=== PATIENT | male | born 1980 | race Caucasian/White ===

== ENCOUNTER 2022-01-27 09:02 | Day surgery (SDC) | payer SELFPAY ==
[2022-01-24 11:34] VITALS: BMI 31.1
[2022-01-27 09:23] VITALS: BP 109/71; PULSE 80; RESP 18; TEMP 36.2; O2SAT 98
[2022-01-27] MEDS: sodium chloride 0.9% 1,000 ML 30 ML IV (09:30)
--- NOTE | 2022-01-27 10:13 | ANES.PREANE2 ---
Pre-Anesthetic Assessment Height/Weight: Height 1.57 m Weight 77.111 kg Temp Pulse Resp BP Pulse Ox O2 Del Method 97.2 F L 80 18 109/71 98 01/27/22 09:23 01/27/22 09:23 01/27/22 09:23 01/27/22 09:23 01/27/22 09:23 01/27/22 09:23 Operation Date: 01/27/22 10:45 Proposed Procedures p Colonoscopy 53141, K62.89(Not Applicable) - Kevin Mitchell DO Familial anesthetic complications: None Was Beta Anoop taken within 24 hours: N/A Was Clonidine taken within 24 hours: N/A Last intake: Intake Last Liquid Date 01/26/22 Last Liquid Time 22:00 Last Solid Date 01/25/22 Last Solid Time 17:00 Social Tobacco and No alcohol Exam alert, oriented x 3, clear to auscultation bilaterally and regular rate & rhythm Airway Mallampati: Class II Dentition: full Comments: Comments: full clayton Musc/skel hip replacement Anesthetic Plan ASA status: 2 Anesthesia: MAC Risk of > 500 ml blood loss (7ml/kg in children): No Medications/Allergies Home Medications Medication Instructions Recorded Confirmed Last Taken Type acetaminophen 500 mg tablet 500 mg PO Q6H PRN Pain 11/29/21 01/27/22 01/25/22 History (Tylenol Extra Strength) naproxen sodium 220 mg tablet 220 mg PO BID PRN Pain 11/29/21 01/27/22 Unknown History Allergies Allergy/AdvReac Type Severity Reaction Status Date / Time pineapple Allergy Severe ALGY-Anaphy Verified 01/27/22 09:22 laxis rofecoxib [From Vioxx] Allergy Severe ADR-Vomitin Verified 01/27/22 09:22 g Current Medications Generic Name Dose Route Start Last Admin Trade Name Freq PRN Reason Stop Dose Admin Sodium Chloride 1,000 mls @ 30 mls/hr 01/27/22 09:15 01/27/22 09:30 Sodium Chloride 0.9% IV 01/28/22 09:14 30 mls/hr .Q24H ILYA Administration PFSH Anesthesia Medical History Anal abscess History of diverticulitis 2009 Severe sun exposure Surgical History History of hip replacement left Hx of colonoscopy Hx of removal of cyst x4 done on rectum Social History Smoking and tobacco status: current every day smoker Data Anesthesia Cardiac Studies: No Data to Display
--- NOTE | 2022-01-27 10:55 | W.PM.OPSUD ---
Surgery/Procedure H&P Update DATE OF PROCEDURE: January 27, 2022 DATE H&P PERFORMED: 01/24/22 PLANNED PROCEDURE: Operation Date: 01/27/22 10:45 Proposed Procedures p Colonoscopy 70346, K62.89(Not Applicable) - Kevin Mitchell DO
[2022-01-27 11:53] VITALS: BP 103/65; PULSE 71; RESP 18; TEMP 36.1; O2SAT 96
[2022-01-27 11:58] VITALS: BP 110/73; PULSE 70; RESP 18; O2SAT 95
--- NOTE | 2022-01-27 13:26 | ANE.PACU2 ---
Inpatient post-anesthesia follow up: Airway intact: Yes Vital signs: Temperature 97.0 F Pulse Rate 70 Respiratory Rate 18 Blood Pressure 110/73 Pulse Oximetry 95 Oxygen Delivery Me thod Room Air Oxygen Flow Rate Fraction of Inspir ed Oxygen Hydration adequate: Yes Nausea and vomiting: No Pain level: 1 Mental status: Baseline
== END 2022-01-27 12:35 | disposition home or self-care (01) ==
PROVIDERS: Visit Provider Surgery
PROC: 0DJD8ZZ Inspection of Lower Intestinal Tract, Via Natural or Artificial Opening Endoscopic (ICD-10-PCS; CPT 45378; principal; 2022-01-27 10:45)
DX: D12.0 Benign neoplasm of cecum (principal); D12.2 Benign neoplasm of ascending colon; K62.1 Rectal polyp; F17.200 Nicotine dependence, unspecified, uncomplicated
CPT/HCPCS: 45380; 45385; 88305; J2704; J7030

== ENCOUNTER 2022-01-29 13:18 | Outpatient (CLI) | payer SELFPAY ==
--- NOTE | 2022-01-29 13:30 | CT_ITS ---
WS: [id number] CT ABDOMEN PELVIS TECHNIQUE: Contrast-enhanced CT of the abdomen and pelvis with coronal and sagittal reformatted image s. CLINICAL INFORMATION: abdominal pain COMPARISON: CT 2012 DLP: 1159.[address] scans at [facility] use at least one of these dose optimization techniques: automated e xposure control; mA and/or kV adjustment per patient size (includes targeted exams where dose is matc hed to clinical indication); or iterative reconstruction. FINDINGS: Diffuse fatty infiltration liver. Normal portal vein and splenic vein. Normal gallbladder. Normal spl een. Normal pancreatic parenchymal enhancement. Adrenal glands are normal. Normal renal parenchymal e nhancement. No hydronephrosis. Normal GE junction. Submucosal enhancement involving the stomach and d uodenum suspicious for gastroduodenitis. Lung bases are well aerated. Celiac and SMA are patent. Normal caliber abdominal aorta. Urine distended bladder. LEFT CANDELARIA degrades images in the pelvis. A few sigmoid diverticuli. No evidence of acute diverticulitis. No evidence of high-grade small or large bowel obstruction. Appendix is difficult to visualize but no evidence of a cute appendicitis. CT/CT abdomen pelvis w con* [id number] IMPRESSION: 1. Distal sigmoid and rectum are decompressed. A few sigmoid diverticuli. No e vidence of acute diverticulitis. 2. No evidence of high-grade small or large bowel obstruction. 3. Appendix is difficult to visualize but no evidence of acute appendicitis. 4. Diffuse fatty infiltration of the liver. 5. Diffuse enhancement of the gastric rugae and submucosal enhancement in the duodenum compatible with gastroduodenitis. 6. No other remarkable findings.
[2022-01-29] MEDS: iohexol 300 mg/mL 50 mL Btl PO (15:13)
[2022-01-29] MEDS: iohexol 350 mg/mL 100 mL Btl IV (15:13)
== END 2022-01-29 13:19 | disposition home or self-care (01) ==
LOC: RAD 13:20
PROVIDERS: Visit Provider Surgery
DX: R10.9 Unspecified abdominal pain (principal); K57.30 Diverticulosis of large intestine without perforation or abscess without bleeding; K76.0 Fatty (change of) liver, not elsewhere classified
CPT/HCPCS: 74177

== ENCOUNTER → 2022-04-06 14:34 | Outpatient (BNVA) | payer SELFPAY | PROVIDERS: Visit Provider Family Medicine | DX: J06.9 Acute upper respiratory infection, unspecified (principal); J10.1 Influenza due to other identified influenza virus with other respiratory manifestations | CPT/HCPCS: 87400 ==

== ENCOUNTER → 2023-04-10 08:23 | Outpatient (BNVA) | payer SELFPAY | PROVIDERS: Visit Provider Nurse Practitioner Family | DX: R05.9 Cough, unspecified (principal); J06.9 Acute upper respiratory infection, unspecified | CPT/HCPCS: 87400 ==

== ENCOUNTER 2023-06-07 12:03 | Emergency (ER) | payer SELFPAY ==
--- NOTE | 2023-06-07 12:06 | XRR_ITS ---
PROCEDURE INFORMATION: Exam: XR Left Hip Exam date and time: 06/07/2023 12:33 PM Age: 42 years old Clinical indication: Injury or trauma; Fall; Blunt trauma (contusions or hematomas); Left; Prior surgery; Surgery date: 6+ months; Surgery type: Lt hip TECHNIQUE: Imaging protocol: Radiologic exam of the left hip. Views: 2 or 3 views hip with pelvis when performed. COMPARISON: CT abdomen pelvis w con* [id number] 01/29/2022 3:08 PM FINDINGS: Bones/joints: A left total hip arthroplasty projects in satisfactory position. No fracture, dislocation, or prosthetic loosening. Otherwise, unremarkable. Soft tissues: Unremarkable. XR/XR hip LT 2-3V wo/w pel* [id number] IMPRESSION: No acute findings.
[2023-06-07 12:15] VITALS: BP 107/68; PULSE 82; RESP 16; TEMP 36.9; O2SAT 97; BMI 32.9
--- NOTE | 2023-06-07 12:32 | ED_ITS ---
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 States that today an hour ago and felt a pop in his left hip and fell the ground has been having left hip pain since then along with difficulty trying to bear weight on that left leg. He denies any knee pain denies hitting his head he rates his pain a 6 out of 10. Associated symptoms: Deny chest pain, fever(s) or rash Review of Systems Const: Denies: fever(s), chills, body aches or change in appetite ENMT: Denies: throat pain or dental pain Card: Denies: chest pain Resp: Denies: dyspnea GI: Denies: abdominal pain, nausea, vomiting or diarrhea Musc: Reports: extremity pain; Denies: neck pain or back pain Skin/Breast: Denies: rash Neuro: Denies: headache(s) PFSH ED PFSH: Medical History History of diverticulitis 2010 Anal abscess Severe sun exposure Surgical History History of hip replacement left Hx of colonoscopy Hx of removal of cyst x4 done on rectum Social History Smoking and tobacco/nicotine status: current every day tobacco/nicotine user Physical Exam Const: COMMON NORMALS: no acute distress, patient oriented x3 and healthy sydnee earing HENMT: COMMON NORMALS: normocephalic and atraumatic HEAD & SCALP: normocephalic and atraumatic Eye: COMMON NORMALS: Equal, round and reactive pupils present and EOMs intact bilaterally PUPIL: Yes Equal, round and reactive pupils present Neck/C-Spine: COMMON NORMALS: full ROM and supple Chest: COMMONS NORMALS: normal inspection of the chest Resp: COMMON NORMALS: normal respiratory effort Cardio: COMMON NORMALS: regular rate RATE: regular rate Extremity: COMMON NORMALS: full ROM NARRATIVE EXTREMITY EXAM: Tenderness over left hip has pain with range of motion. Distal pulses intact Neuro: COMMON NORMALS: patient oriented x3, moves all extremities and no focal motor deficits Psych: COMMON NORMALS: mental status grossly normal, Normal thought process present and cooperative THOUGHT PROCESS: Normal thought process present Skin: COMMON NORMALS: no rashes or lesions noted and no wounds GENERAL SKIN EXAM: no rashes or lesions noted Course Vital Signs: Vital signs: Vital Signs Temperature 98.4 F 06/07/23 12:15 Pulse Rate 82 06/07/23 12:15 Respiratory Rate 16 06/07/23 12:15 Blood Pressure 107/68 06/07/23 12:15 Pulse Oximetry 97 06/07/23 12:15 Oxygen Delivery Me thod Room Air 06/07/23 12:15 MDM - Extremity (Nontraumatic) Medical Decision Making Patient presents here with left hip pain likely muscle spasms x-ray shows no abnormalities he is stable for discharge we will place him on pain meds along with muscle relaxants he is follow-up with his PCP and return if worsening. Medical Records I reviewed the patient's medical records. Lab Data Radiology Impressions Hip/Pelvis X-Ray 06/07/23 12:06 IMPRESSION: No acute findings. All radiology interpretation(s) finalized by discharge Discharge Plan Discharge Patient Disposition: Home Clinical Impression: Hip pain, left Condition: Stable Prescriptions: New hydrocodone-acetaminophen 5-325 mg tablet 1 tab PO Q6H PRN (Reason: pain) Qty: 14 0RF methocarbamol 750 mg tablet 750 mg PO Q6H PRN (Reason: spasms) Qty: 20 0RF No Action acetaminophen [Tylenol Extra Strength] 500 mg tablet 500 mg PO Q6H PRN (Reason: Pain) duloxetine 30 mg capsule,delayed release(DR/EC) 30 mg PO gabapentin 100 mg capsule 100 mg PO TID Discharge Orders: Discharge ED (Routine); Ordered 06/07/23 Ordered By: Carlota Galindo Discharge Diet: Advance as tolerated Discharge Activity: Resume usual activity Patient Instructions: Hip Pain (ED), Opioid Safety Stand Alone Forms: Work/School Release Coding Level of Care Code ED Director Of Search Engine Optimization for Sohail Alonzo
[2023-06-07] MEDS: morphine 4 mg/mL SDV 1 mL IM (12:42)
== END 2023-06-07 13:02 | disposition home or self-care (01) ==
PROVIDERS: Emergency Provider Emergency Medicine
DX: M25.552 Pain in left hip (principal); Z72.0 Tobacco use
CPT/HCPCS: 73502; 96372; 99284; J2270

== ENCOUNTER 2023-12-06 19:41 | Emergency (ER) | payer SELFPAY ==
[2023-12-06 19:49] VITALS: BP 114/77; PULSE 87; RESP 16; TEMP 36.8; O2SAT 96; BMI 25.2
--- NOTE | 2023-12-06 21:20 | CTR_ITS ---
PROCEDURE INFORMATION: Exam: CT Abdomen And Pelvis With Contrast Exam date and time: 12/06/2023 9:47 PM Age: 43 years old Clinical indication: Other: Abnormal bowel movement. Prior surgery; Surgery date: 6+ months; Surgery type: Left gurpreet; Patient HX: Patient believes he defecated a piece of internal tissue earlier this evening. Brought sample into er. History of diveritculitis and rectal abscess with multiple polyps. ; Additional info: Concern for mass TECHNIQUE: Imaging protocol: Computed tomography of the abdomen and pelvis with contrast. Radiation optimization: All CT scans at this facility use at least one of these dose optimization techniques: automated exposure control; mA and/or kV adjustment per patient size (includes targeted exams where dose is matched to clinical indication); or iterative reconstruction. Contrast material: OMNI 350; Contrast volume: 100 ml; Contrast route: INTRAVENOUS (IV); COMPARISON: CT abdomen pelvis w con* [id number] 01/29/2022 3:08 PM RADIATION DOSE METRICS: Total DLP (mGy-cm): 648.31 FINDINGS: Lungs: Subsegmental bibasilar atelectasis. The visualized lung bases are otherwise grossly clear. Diaphragm: No evidence of diaphragmatic defect. Liver: No focal hepatic lesion. Gallbladder and biliary ducts: Unremarkable. No intra-hepatic or extra-hepatic biliary dilatation. Pancreas: Unremarkable. Spleen: Unremarkable. Adrenal glands: Unremarkable. Kidneys and ureters: No renal parenchymal abnormality. No hydronephrosis or ureteral stone. Stomach and bowel: No evidence of bowel obstruction or perienteric inflammatory changes. No evidence of anorectal mass. Appendix: The appendix is not visualized, however there are no findings to suggest appendicitis. Intraperitoneal space: No evidence of free air or fluid collection. Vasculature: No aneurysmal dilatation or dissection of the abdominal aorta. The celiac trunk, SMA and MICHAEL are grossly patent. No evidence of IVC thrombus. The portal vein, SMV and splenic veins are grossly patent. Lymph nodes: No adenopathy. Urinary bladder: Grossly unremarkable. Reproductive: Grossly unremarkable. Bones/joints: No evidence of acute fracture or aggressive osseous lesion. Total left hip arthroplasty. Soft tissues: No evidence of fluid collection or hematoma in the superficial soft tissues. CT/CT abdomen pelvis w con* [id number] IMPRESSION: 1. No evidence of acute abnormality in the abdomen or pelvis.
--- NOTE | 2023-12-06 21:27 | W.ED.ABDPA2 ---
HPI - Abdominal Pain General: Chief Complaint: Abdominal Pain Stated Complaint: Is Constipated\Mass Came Out Time Seen by Provider: 12/06/23 19:46 History of Present Illness: 43-year-old male patient comes in for concerns of a what he believes is a piece of tissue that he defecated. Patient had a colonoscopy 2 years ago and was told that he has polyps. Patient feels that he might of passed a polyp. Patient has a 2 cm circular mass surrounding the mucus that he brought in in a cup. Patient appears nontoxic. Patient does smoke tobacco routinely. 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 Review of Systems General: Reports: 10 or more systems reviewed and unremarkable except in HPI and below PFSH ED PFSH: Medical History History of diverticulitis 2010 Anal abscess Severe sun exposure Surgical History History of hip replacement left Hx of colonoscopy Hx of removal of cyst x4 done on rectum Social History Smoking and tobacco/nicotine status: current every day tobacco/nicotine user Physical Exam Const: COMMON NORMALS: alert HENMT: HEAD & SCALP: normal to inspection Neck/C-Spine: COMMON NORMALS: full ROM Resp: COMMON NORMALS: normal respiratory effort and clear to auscultation bilaterally AUSCULTATION: clear to auscultation bilaterally Cardio: COMMON NORMALS: regular rate and regular rhythm RATE: regular rate RHYTHM: regular rhythm GI: COMMON NORMALS: Soft to palpation and non-tender PALPATION: Yes Soft to palpation : COMMON NORMALS: Yes no CVA tenderness BLADDER/KIDNEY EXAM: Yes no CVA tenderness Back/Pelvis: COMMON NORMALS: no CVA tenderness Extremity: COMMON NORMALS: normal to inspection Neuro: SENSORIUM/ORIENTATION: Yes alert Skin: COMMON NORMALS: turgor normal GENERAL SKIN EXAM: turgor normal Course Vital Signs: Vital signs: Vital Signs Temperature 98.2 F 12/06/23 19:49 Pulse Rate 78 12/06/23 22:09 Respiratory Rate 18 12/06/23 22:09 Blood Pressure 110/75 12/06/23 22:09 Pulse Oximetry 93 12/06/23 22:09 Oxygen Delivery Me thod Room Air 12/06/23 22:09 MDM - Abdominal Pain Medical Decision Making Patient comes in today for complaints of constipation and passing of a piece of tissue in his stool. Patient believes that it might be a polyp. Patient appears nontoxic. Abdomen soft with some mild tenderness. Bowel sounds are present. Differential diagnosis carcinoma, constipation, colon polyp, hemorrhoid. Abnormal stool was sent for tissue analysis. I believe like patient actually brought in was a piece of stool but he was concerned there was tissue in it. Pathology will decide. CBC was unremarkable. CMP was unremarkable. Urinalysis did note some nitrates which may be suggestive of urinary tract infection. Patient has also had some constipation which may further endorse the UTI. Will go ahead and treat with ceftriaxone in the emergency room and continue with cephalexin at home. CT of the abdomen pelvis was unremarkable. My review of the CT noted no significant constipation. Patient was given 1 L of IV fluids to help correct dehydration secondary to laxative use. Lab Data 12/06/23 21:39 12/06/23 21:39 Labs/Radiology: Radiology Impressions Abdomen/Pelvis CT 12/06/23 21:20 IMPRESSION: 1. No evidence of acute abnormality in the abdomen or pelvis. Laboratory Results WBC 9.68 10^3/uL (3.29-11.43) 12/06/23 21:39 RBC 5.33 10^6/uL (3.85-5.65) 12/06/23 21:39 Hgb 16.40 g/dL (11.27-16.99) 12/06/23 21:39 Hct 47.3 % (37-53) 12/06/23 21:39 MCV 88.7 fl (82-101) 12/06/23 21:39 MCH 30.8 pg (27-33) 12/06/23 21:39 MCHC 34.7 g/dL (30-55) 12/06/23 21:39 RDW 12.4 % (12.1-15.1) 12/06/23 21:39 Plt Count 229 10^3/cmm (157-399) 12/06/23 21:39 MPV 9.1 fL (7.4-10.4) 12/06/23 21:39 Neut % (Auto) 47.3 % 12/06/23 21:39 Lymph % (Auto) 39.4 % 12/06/23 21:39 [place] % (Auto) 9.1 % 12/06/23 21:39 Eos % (Auto) 3.0 % 12/06/23 21:39 Baso % (Auto) 0.6 % 12/06/23 21:39 Neut # (Auto) 4.58 10^3/uL (1.8-7.7) 12/06/23 21:39 Lymph # (Auto) 3.8 10^3/uL (0.8-4.8) 12/06/23 21:39 [place] # (Auto) 0.9 10^3/uL (0.2-0.9) 12/06/23 21:39 Eos # (Auto) 0.3 10^3/uL (0.0-0.8) 12/06/23 21:39 Baso # (Auto) 0.1 10^3/uL (0.0-0.1) 12/06/23 21:39 Nucleated RBC % (auto) 0 % 12/06/23 21:39 Nucleated RBCs # 0.0 /100WBC 12/06/23 21:39 Sodium 134 mmol/L (136-145) L 12/06/23 21:39 Potassium 3.7 mmol/L (3.5-5.1) 12/06/23 21:39 Chloride 100 mmol/L (98-107) 12/06/23 21:39 Carbon Dioxide 23 mmol/L (22-29) 12/06/23 21:39 Anion Gap 14.7 (5-19) 12/06/23 21:39 BUN 17 mg/dL (6-20) 12/06/23 21:39 Creatinine 0.9 mg/dL (0.7-1.2) 12/06/23 21:39 GFR Calculation 92.5 mL/min (90-130) 12/06/23 21:39 Glucose 107 mg/dL (65-115) 12/06/23 21:39 Calculated Osmolality 280 mOsm/kg (285-295) L 12/06/23 21:39 Calcium 9.0 mg/dL (8.5-10.5) 12/06/23 21:39 Total Bilirubin 0.4 mg/dL (0.15-1.2) 12/06/23 21:39 AST 22 U/L (0-40) 12/06/23 21:39 ALT 40 U/L (0-41) 12/06/23 21:39 Alkaline Phosphatase 80 U/L (40-130) 12/06/23 21:39 Total Protein 7.5 g/dL (6.6-8.7) 12/06/23 21:39 Albumin 4.2 g/dL (3.5-5.2) 12/06/23 21:39 Globulin 3.3 g/dL (1.3-4.6) 12/06/23 21:39 Lipase 50 U/L (13-60) 12/06/23 21:39 Urine Color Yellow (Yellow) 12/06/23 22:00 Urine Appearance Slightly cloudy (CLEAR) 12/06/23 22:00 Urine pH 5 (5-7) 12/06/23 22:00 Ur Specific [place] 1.020 (1.005-1.030) 12/06/23 22:00 Urine Protein Trace (Negative) 12/06/23 22:00 Urine Glucose (UA) Norm (Normal) 12/06/23 22:00 Urine Ketones 1+ (Negative) H 12/06/23 22:00 Urine Blood 2+ (Negative) H 12/06/23 22:00 Urine Nitrate Positive (Negative) A 12/06/23 22:00 Urine Bilirubin Neg (Negative) 12/06/23 22:00 Urine Urobilinogen Neg mg/dL (Negative) 12/06/23 22:00 Ur Leukocyte Esterase Negative (Negative) 12/06/23 22:00 Urine RBC 0-4 /hpf (0-2) H 12/06/23 22:00 Urine WBC 0-4 /hpf (0-5) H 12/06/23 22:00 Ur Squamous Epith Cells 0-4 /hpf (0-5) H 12/06/23 22:00 Amorphous Sediment Not Reportable 12/06/23 22:00 Urine Bacteria 2+ /hpf (NONE) H 12/06/23 22:00 Urine Mucus 2+ /hpf 12/06/23 22:00 All radiology interpretation(s) finalized by discharge Discharge Plan Discharge Patient Disposition: Home Clinical Impression: Stool contents finding, abnormal, Bacterial UTI Condition: Stable Prescriptions: New cephalexin 500 mg capsule 500 mg PO TID 7 Days Qty: 21 0RF No Action acetaminophen [Tylenol Extra Strength] 500 mg tablet 500 mg PO Q6H PRN (Reason: Pain) duloxetine 30 mg capsule,delayed release(DR/EC) 30 mg PO gabapentin 100 mg capsule 100 mg PO TID hydrocodone-acetaminophen 5-325 mg tablet 1 tab PO Q6H PRN (Reason: pain) Qty: 14 0RF methocarbamol 750 mg tablet 750 mg PO Q6H PRN (Reason: spasms) Qty: 20 0RF Discharge Orders: Discharge ED (Routine); Ordered 12/06/23 Ordered By: Lenin Pedroza Referrals: Lizabeth Johnson DO [Primary Care Provider] - Discharge Diet: Usual diet Discharge Activity: Increase activity as tolerated Patient Instructions: Urinary Tract Infection in Men (ED) Activity Restrictions/Additional Instructions: Drink plenty of water and fluids. Follow-up with Dr. Mitchell for further evaluation and concerns about probable polyp passing. Take antibiotics as directed for urinary tract infection. Eat a healthy diet with plenty of fiber. Follow-up with primary care as needed. Return to ED for new concerns or worsening symptoms such as high fever, blood in stool, or inability to hold fluids down. Coding Level of Care Code ED Metal Sp[employer] Making Machine Operator for Sohail Alonzo
[2023-12-06 21:40] VITALS: BP 110/79; PULSE 77; RESP 16; O2SAT 98
[2023-12-06 21:48] LABS: Basophils # 0.1 10^3/uL (0.0-0.1); Basophils % 0.6 %; Eosinophils # 0.3 10^3/uL (0.0-0.8); Hematocrit 47.3 % (37-53); Lymphocytes # 3.8 10^3/uL (0.8-4.8); Lymphocytes % 39.4 %; Mean Corpuscular HGB Conc 34.7 g/dL (30-55); Mean Corpuscular Hemoglobin 30.8 pg (27-33); Mean Corpuscular Volume 88.7 fl (82-101); Mean Platelet Volume 9.1 fL (7.4-10.4); Monocytes # 0.9 10^3/uL (0.2-0.9); Monocytes % 9.1 %; Neutrophils # 4.58 10^3/uL (1.8-7.7); Neutrophils % 47.3 %; Nucleated Red Blood Cells % 0 %; Platelet Count 229 10^3/cmm (157-399); Red Blood Count 5.33 10^6/uL (3.85-5.65); Red Cell Distribution Width 12.4 % (12.1-15.1); White Blood Count 9.68 10^3/uL (3.29-11.43)
[2023-12-06] MEDS: iohexol 350 mg/mL 500 mL Btl (per mL) IV (21:49)
[2023-12-06 22:08] LABS: Alanine Aminotransferase 40 U/L (0-41); Albumin Level 4.2 g/dL (3.5-5.2); Alkaline Phosphatase 80 U/L (40-130); Anion Gap 14.7 (5-19); Aspartate Amino Transferase 22 U/L (0-40); Blood Urea Nitrogen 17 mg/dL (6-20); Carbon Dioxide 23 mmol/L (22-29); Chloride 100 mmol/L (98-107); Creatinine Clr Calc Pharmacy 87.4112; Globulin 3.3 g/dL (1.3-4.6); Glomerular Filtration Rate 92.5 mL/min (90-130); Glucose 107 mg/dL (65-115); Lipase 50 U/L (13-60); Osmolality Calculated 280 mOsm/kg (285-295); Potassium 3.7 mmol/L (3.5-5.1); Sodium 134 mmol/L (136-145); Total Bilirubin 0.4 mg/dL (0.15-1.2); Total Protein 7.5 g/dL (6.6-8.7)
[2023-12-06 22:09] VITALS: BP 110/75; PULSE 78; RESP 18; O2SAT 93
[2023-12-06 22:39] LABS: Add Urine Microscopic? YES; Bilirubin Urine Neg (Negative); Blood Urine 2+ (Negative); Glucose Urine UA Norm (Normal); Ketones Urine 1+ (Negative); Leukocyte Esterase Urine Negative (Negative); Nitrate Urine Positive (Negative); Protein Urine Trace (Negative); Urine Appearance Slightly Cloudy (CLEAR); Urine Color Yellow (Yellow); Urobilinogen Urine Neg (Negative); pH Urine 5 (5-7)
[2023-12-06 22:40] LABS: Bacteria Urine 2+ /hpf; Mucus Urine 2+ /hpf; RBC Urine 0-4 /hpf (0-2); Squamous Epithelial Cell Urine 0-4 /hpf (0-5); WBC Urine 0-4 /hpf (0-5)
[2023-12-06 22:41] LABS: Add Urine Culture? Yes
[2023-12-06 23:23] VITALS: BP 102/64; PULSE 70; RESP 16; O2SAT 96
[2023-12-06] MEDS: sodium chloride 0.9% 1,000 ML 999 ML IV (23:27)
[2023-12-06] MEDS: cefTRIAXone 1,000 mg SDV 1000 MG IVP (23:27)
[2023-12-07 00:12] VITALS: BP 103/55; PULSE 71; RESP 18; O2SAT 94
[2023-12-07 00:14] VITALS: BP 103/55; PULSE 71; RESP 18; TEMP 36.8; O2SAT 94
--- NOTE | 2023-12-07 08:23 | DCPLANNER ---
Message sent to Gen surg for follow up
== END 2023-12-07 00:17 | disposition home or self-care (01) ==
PROVIDERS: Emergency Provider Nurse Practitioner Family; PCP Family Medicine
DX: R19.5 Other fecal abnormalities (principal); N39.0 Urinary tract infection, site not specified; B96.89 Other specified bacterial agents as the cause of diseases classified elsewhere; Z72.0 Tobacco use
CPT/HCPCS: 74177; 80053; 81001; 83690; 85025; 87086; 88305; 96374; 99285; J0696; J7030; Q9967

== ENCOUNTER 2024-01-27 07:46 | Outpatient (CLI) | payer SELFPAY ==
--- NOTE | 2024-01-27 08:00 | NM_ITS ---
WS: [id number] NUCLEAR MEDICINE HIDA SCAN WITH GALLBLADDER EJECTION FRACTION HISTORY: gastroduodenitis COMPARISON: CT 12/06/2023 TECHNIQUE: The patient was intravenously injected with 7.9 mCi of TC99m Mebrofenin. Immediate imaging over the right upper quadrant was followed by 5 minute image and additional images for a total of 60 minutes. Normal uptake of radiotracer throughout the liver. Activity identified in the gallbladder at 10 minutes and well distended by 60 minutes. Activity in the proximal small bowel was seen by 40 minutes. Good washout of the radiotracer from the liver by 60 minutes. The patient then drank 8 ounces of Ensure Plus. Ejection fraction at 60 minutes was 54%. Normal GB ej ection fraction is 35-75%. Post fatty meal symptoms: None. NM/NM hepatobiliary w phar* [id number] IMPRESSION: 1. Normal HIDA scan. 2. Normal gallbladder ejection fraction.
== END 2024-01-27 07:47 | disposition home or self-care (01) ==
LOC: RAD 07:47
PROVIDERS: PCP Family Medicine; Visit Provider Surgery
DX: K29.90 Gastroduodenitis, unspecified, without bleeding (principal)
CPT/HCPCS: 78227; A9537

== ENCOUNTER 2024-02-12 07:35 | Outpatient (CLI) | payer SELFPAY ==
--- NOTE | 2024-02-12 08:00 | US_ITS ---
WS: [id number] RIGHT UPPER QUADRANT ULTRASOUND HISTORY: gastroduodentitis COMPARISON: CT 12/06/2023 Liver: 14.1 cm in length. Normal size liver. Coarse echotexture is related to poor settings. There is a hypoechoic area measuring 1.6 x 1.3 x 2.0 cm in the central liver. Too small to characterize. Coul d potentially be a small cyst. Portal Vein: Normal hepatopetal flow with monophasic waveform. Gallbladder: Normally distended gallbladder with no stones or wall thickening. CBD: 0.4 cm Pancreas: Not visualized. Right kidney: 11.2 cm in length. Normal size and echogenicity. No hydronephrosis or mass. Aorta and IVC: Unremarkable abdominal aorta and IVC. No ascites. US/US gall bladder [id number] IMPRESSION: 1. Negative gallbladder. 2. Too small to characterize hypoechoic area in the central liver. May be a sm all cyst or complex cyst. Very nonspecific in appearance. With no history of ma lignancy statistically this is not likely metastatic disease. 3. Nonvisualization of the pancreas.
== END 2024-02-12 07:36 | disposition home or self-care (01) ==
PROVIDERS: PCP Family Medicine; Visit Provider Surgery
DX: K29.90 Gastroduodenitis, unspecified, without bleeding (principal)
CPT/HCPCS: 76705

== ENCOUNTER 2024-02-24 07:19 | Day surgery (SDC) | payer SELFPAY ==
[2024-02-24 07:32] VITALS: BP 107/60; PULSE 57; RESP 18; TEMP 36.4; O2SAT 98
[2024-02-24] MEDS: sodium chloride 0.9% 1,000 ML 30 ML IV (07:43)
--- NOTE | 2024-02-24 08:04 | ANES.PREANE2 ---
Pre-Anesthetic Assessment Height/Weight: Height 1.57 m Weight 72.575 kg Temp Pulse Resp BP Pulse Ox O2 Del Method 97.6 F 57 L 18 107/60 98 Room Air 02/24/24 07:32 02/24/24 07:32 02/24/24 07:32 02/24/24 07:32 02/24/24 07:32 02/24/24 07:32 Preop Diagnosis: History of colonic polyps, Abdominal Pain, GERD Operation Date: 02/24/24 08:30 Proposed Procedures p EGD 15057, 64219, G0105, Z86.010, K21.9, K59.04, R10.9(Not Applicable) - DO elma Clark Colonoscopy(Not Applicable) - Kevin Mitchell DO Familial anesthetic complications: none Was Beta Anoop taken within 24 hours: N/A Was Clonidine taken within 24 hours: N/A Last intake: Intake Last Liquid Date 02/23/24 Last Liquid Time 23:30 Last Solid Date 02/22/24 Last Solid Time 19:00 Social Alcohol (1x week, social per patient) and Tobacco Exam alert, oriented x 3, clear to auscultation bilaterally and regular rate & rhythm Airway Submandibular: within normal limits Cervical ROM: within normal limits Mallampati: Class II Dentition: chipped Comments: Comments: poor dentition left lower molar loose. Pulmonary None reported CV/HEM None reported None reported Hepatic mass on liver found a few weeks prior complete workup not yet performed possible cyst per patient. 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 Neuropsych Depression Anesthetic Plan ASA status: 2 Anesthesia: MAC Medications/Allergies Home Medications Medication Instructions Recorded Confirmed Last Taken Type acetaminophen 500 mg tablet 1,000 mg PO Q6H PRN Pain 11/29/21 02/22/24 02/23/24 History (Tylenol Extra Strength) hydrocodone 5 mg-acetaminophen 325 1 tab PO Q6H PRN pain #14 tabs 06/07/23 02/22/24 02/23/24 Rx mg tablet methocarbamol 750 mg tablet 750 mg PO Q6H PRN spasms #20 tabs 06/07/23 02/22/24 02/23/24 Rx pantoprazole 40 mg tablet,delayed 40 mg PO BID 6 weeks #84 tabs 01/18/24 02/22/24 02/23/24 Rx release (Protonix) linaclotide 145 mcg capsule 145 mcg PO DAILY 02/22/24 02/22/24 02/23/24 History (Linzess) naproxen 250 mg tablet 250 mg PO BID PRN Pain 02/22/24 02/22/24 02/23/24 History Allergies Allergy/AdvReac Type Severity Reaction Status Date / Time pineapple Allergy Severe ALGY-Anaphy Verified 01/18/24 10:47 laxis rofecoxib [From Vioxx] Allergy Severe ADR-Vomitin Verified 01/18/24 10:47 g Current Medications Generic Name Dose Route Start Last Admin Trade Name Freq PRN Reason Stop Dose Admin Sodium Chloride 1,000 mls @ 30 mls/hr 02/24/24 07:30 02/24/24 07:43 Sodium Chloride 0.9% IV 02/25/24 07:29 30 mls/hr .Q24H ILYA Administration PFSH Anesthesia Medical History (Updated 01/18/24 @ 11:31 by Kevin Mitchell DO) History of colon polyps History of diverticulitis 2010 Anal abscess Severe sun exposure Surgical History History of hip replacement left Hx of colonoscopy Hx of removal of cyst x4 done on rectum Family History Family/Other , from stage 4 cancer at the age of 48 Colon cancer Social History Smoking and tobacco/nicotine status: current every day tobacco/nicotine user (half a pack to a full pack a day) Data Anesthesia Cardiac Studies: No Data to Display
--- NOTE | 2024-02-24 08:25 | PM.HP ---
Providers/Chief Complaint Primary Care Provider: Lizabeth Johnson DO Chief Complaint: Z86.010 History of Present Illness Paul Ryees is a 43 year old male Review of Systems General: Reports: 10 or more systems reviewed and unremarkable except in HPI and below Medications/Allergies Home Medications Medication Instructions Recorded Confirmed Last Taken Type acetaminophen 500 mg tablet 1,000 mg PO Q6H PRN Pain 11/29/21 02/22/24 02/23/24 History (Tylenol Extra Strength) hydrocodone 5 mg-acetaminophen 325 1 tab PO Q6H PRN pain #14 tabs 06/07/23 02/22/24 02/23/24 Rx mg tablet methocarbamol 750 mg tablet 750 mg PO Q6H PRN spasms #20 tabs 06/07/23 02/22/24 02/23/24 Rx pantoprazole 40 mg tablet,delayed 40 mg PO BID 6 weeks #84 tabs 01/18/24 02/22/24 02/23/24 Rx release (Protonix) linaclotide 145 mcg capsule 145 mcg PO DAILY 02/22/24 02/22/24 02/23/24 History (Linzess) naproxen 250 mg tablet 250 mg PO BID PRN Pain 02/22/24 02/22/24 02/23/24 History Allergies Allergy/AdvReac Type Severity Reaction Status Date / Time pineapple Allergy Severe ALGY-Anaphy Verified 01/18/24 10:47 laxis rofecoxib [From Vioxx] Allergy Severe ADR-Vomitin Verified 01/18/24 10:47 g PFSH Acute PFSH: Medical History History of colon polyps History of diverticulitis 2010 Anal abscess Severe sun exposure Surgical History History of hip replacement left Hx of colonoscopy Hx of removal of cyst x4 done on rectum Family History Family/Other , from stage 4 cancer at the age of 48 Colon cancer Social History Smoking and tobacco/nicotine status: current every day tobacco/nicotine user (half a pack to a full pack a day) Vitals/I&O/Wt Last Vital Signs Temp 97.6 F 02/24/24 07:32 Pulse 57 L 02/24/24 07:32 Resp 18 02/24/24 07:32 BP 107/60 02/24/24 07:32 Pulse Ox 98 02/24/24 07:32 O2 Del Method Room Air 02/24/24 07:32 Weight last 48 hrs Weight 160 lb A&P Assessment and plan (1) History of colon polyps: (2) GERD (gastroesophageal reflux disease): (3) Chronic idiopathic constipation: (4) Abdominal pain: Plan EGD and colonoscopy Attestations Medical Necessity Statement*: Home Coding Level of Care Code Acute Code for Chg Fwd Diagnoses History of colon polyps Z86.010 GERD (gastroesophageal reflux disease) K21.9 Chronic idiopathic constipation K59.04 Abdominal pain R10.9
[2024-02-24 08:58] VITALS: BP 96/60; PULSE 85; RESP 18; TEMP 36.2; O2SAT 97
[2024-02-24 09:15] VITALS: BP 93/62; PULSE 77; RESP 18; O2SAT 98
[2024-02-24 09:20] VITALS: BP 98/63; PULSE 89; RESP 18; O2SAT 97
--- NOTE | 2024-02-24 09:30 | ANE.PACU2 ---
Inpatient post-anesthesia follow up: Airway intact: Yes Vital signs: Temperature 97.1 F Pulse Rate 89 Respiratory Rate 18 Blood Pressure 98/63 Pulse Oximetry 97 Oxygen Delivery Me thod Room Air Oxygen Flow Rate 5 Fraction of Inspir ed Oxygen Hydration adequate: Yes Pain level: 1 Mental status: Baseline
--- NOTE | 2024-02-24 13:27 | PC.NURSE ---
hot snare open but not needed and not used, cold snare opened and used.
== END 2024-02-24 09:30 | disposition home or self-care (01) ==
PROVIDERS: PCP Family Medicine; Visit Provider Surgery
PROC: 0DJ08ZZ Inspection of Upper Intestinal Tract, Via Natural or Artificial Opening Endoscopic (ICD-10-PCS; CPT 43235; principal; 2024-02-24 08:30)
PROC: 0DJD8ZZ Inspection of Lower Intestinal Tract, Via Natural or Artificial Opening Endoscopic (ICD-10-PCS; CPT 45378; 2024-02-24 08:30)
DX: K59.04 Chronic idiopathic constipation (principal); Z86.010 Personal history of colon polyps; K21.9 Gastro-esophageal reflux disease without esophagitis; R10.9 Unspecified abdominal pain; F17.210 Nicotine dependence, cigarettes, uncomplicated
CPT/HCPCS: 43239; 45385; 88305; J2704; J3490; J7030

== ENCOUNTER 2024-03-22 07:44 | Day surgery (SDC) | payer SELFPAY ==
[2024-03-22] VITALS (10 sets, daily range): BP systolic 101–143; BP diastolic 67–91; PULSE 58–81; RESP 16–27; TEMP 36.2–37.1; O2SAT 90–96; BMI 31.1
--- NOTE | 2024-03-22 08:09 | W.PM.OPSUD ---
Surgery/Procedure H&P Update DATE OF PROCEDURE: March 22, 2024 DATE H&P PERFORMED: 03/10/24 H&P UPDATE INFORMATION: I have reviewed H&P completed within last 30 days, I have examined patient prior to procedure and No changes to prior documentation PLANNED PROCEDURE: Operation Date: 03/22/24 09:20 Proposed Procedures p Laparoscopic Cholecystectomy 31048, K80.50(Not Applicable) - Kevin Mitchell, DO
--- NOTE | 2024-03-22 08:29 | P.ANESASSM_ITS ---
Pre-Anesthetic Assessment Height/Weight: Height 1.57 m Weight 77.111 kg O2 Del Method Room Air 03/22/24 08:15 Operation Date: 03/22/24 09:20 Proposed Procedures p Laparoscopic Cholecystectomy 79778, K80.50(Not Applicable) - Kevin Mitchell DO Familial anesthetic complications: None Was Beta Anoop taken within 24 hours: N/A Was Clonidine taken within 24 hours: N/A Last intake: Intake Last Liquid Date 03/21/24 Last Liquid Time 20:00 Last Solid Date 03/21/24 Last Solid Time 17:00 Social Tobacco and No alcohol Exam alert, oriented x 3, clear to auscultation bilaterally and regular rate & rhythm Airway Mallampati: Class IV Dentition: chipped and loose GI Gastroesophageal Reflux Disease Anesthetic Plan ASA status: 2 Anesthesia: General Risk of > 500 ml blood loss (7ml/kg in children): No Medications/Allergies Home Medications Medication Instructions Recorded Confirmed Last Taken Type acetaminophen 500 mg tablet 1,000 mg PO Q6H PRN Pain 11/29/21 03/21/24 03/07/24 History (Tylenol Extra Strength) hydrocodone 5 mg-acetaminophen 325 1 tab PO Q6H PRN pain #14 tabs 06/07/23 03/21/24 03/01/24 Rx mg tablet pantoprazole 40 mg tablet,delayed 40 mg PO BID 6 weeks #84 tabs 01/18/24 03/21/24 03/21/24 Rx release (Protonix) naproxen 250 mg tablet 250 mg PO BID PRN Pain 02/22/24 03/21/24 02/23/24 History linaclotide 290 mcg capsule 290 mcg PO QAM #30 caps 02/24/24 03/21/24 03/21/24 Rx (Linzess) ciprofloxacin HCl 0.3 % eye drops See Rx Instructions ophthalmic 03/16/24 03/21/24 03/21/24 Rx (eye) .COMPLEX #2.5 mL Allergies Allergy/AdvReac Type Severity Reaction Status Date / Time pineapple Allergy Severe ALGY-Anaphy Verified 03/16/24 07:01 laxis rofecoxib [From Vioxx] Allergy Severe ADR-Vomitin Verified 03/16/24 07:01 g PFSH Anesthesia Medical History Tubular adenoma of colon History of colon polyps History of diverticulitis 2010 Anal abscess Severe sun exposure Surgical History History of hip replacement left Hx of colonoscopy Hx of removal of cyst x4 done on rectum Family History Family/Other , from stage 4 cancer at the age of 48 Colon cancer Social History Smoking and tobacco/nicotine status: never used tobacco/nicotine Data Anesthesia Cardiac Studies: No Data to Display
[2024-03-22] MEDS: sodium chloride 0.9% 1,000 ML 30 ML IV (08:47)
[2024-03-22] MEDS: ceFAZolin 2,000 mg SDV 2000 MG IVP (08:48)
[2024-03-22] MEDS: lidocaine-epi 2% PF 1:200,000 20 mL SDV XX (09:07)
--- NOTE | 2024-03-22 09:31 | P.OP_ITS ---
Operative Report Date of procedure: March 22, 2024 Surgeon: Kevin Mitchell DO Brief History: This very pleasant 43-year-old gentleman came to my office with abdominal pain. He was diagnosed with biliary colic. Laparoscopic cholecystectomy was indicated. The risks and benefits of the procedure, including the fact that cholecystectomy may not relieve all of his symptoms, were explained to the patient. He is understanding of the risks and wished to proceed Procedure: Preoperative diagnosis: Biliary colic Postoperative diagnosis: Same Procedure performed: Laparoscopic cholecystectomy Surgeon: Dr. Kevin Mitchell DO Estimated blood loss: 5 mL Specimens: Gallbladder to pathology Complications: None apparent Description of procedure: Patient was wheeled into the operative room and placed on the OR table in a supine position. Abdomen was inspected prepped and draped in usual sterile fashion. Time-out was performed and all present were in agreement. A 15 blade scalp was used to make a stab incision in the left upper quadrant and intra- abdominal insufflation was achieved using a Veress needle. After localizing the tissue incisions were made and a 5 millimeter trocar was placed into the umbilicus as well as 2 in the right upper quadrant. A 12 millimeter trocar was placed in the epigastrium. Gallbladder was grasped and elevated. The triangle of Calot was carefully dissected using blunt dissection and electrocautery until the triangle of Calot clearly identified. The cystic duct was clipped proximally and double clipped distally. The duct was then ligated proximally. The cystic artery was doubly clipped and ligated. The gallbladder was then removed from the liver bed using electrocautery. The gallbladder was removed from the abdomen using an Endo-Catch bag through the epigastric incision. The liver bed was inspected and no bleeding was seen. The abdomen was irrigated and suctioned. All ports removed. Skin was washed and dried. Incisions were closed with 4-0 Monocryl in a subcuticular interrupted fashion. Skin glue was applied. Patient tolerated the procedure well.
[2024-03-22] MEDS: ondansetron 2 mg/ML SDV 2 mL 4 MG IVP ×2 (09:50→10:05)
[2024-03-22] MEDS: fentaNYL 50 mcg/mL INJ 2mL IVP (09:51)
--- NOTE | 2024-03-22 11:05 | ANE.PACU2 ---
Inpatient post-anesthesia follow up: Airway intact: Yes Vital signs: Temperature 97.8 F Pulse Rate 61 Respiratory Rate 16 Blood Pressure 106/67 Pulse Oximetry 96 Oxygen Delivery Me thod Room Air Oxygen Flow Rate Fraction of Inspir ed Oxygen Hydration adequate: Yes Nausea and vomiting: No Pain level: 1 Mental status: Baseline
== END 2024-03-22 11:05 | disposition home or self-care (01) ==
PROVIDERS: PCP Family Medicine; Visit Provider Surgery
PROC: 0FT44ZZ Resection of Gallbladder, Percutaneous Endoscopic Approach (ICD-10-PCS; CPT 47562; principal; 2024-03-22 09:20)
DX: K80.10 Calculus of gallbladder with chronic cholecystitis without obstruction (principal); K21.9 Gastro-esophageal reflux disease without esophagitis
CPT/HCPCS: 47562; 88304; J0690; J1100; J1171; J1885; J2250; J2405; J2704; J3010; J3490; J7030

== ENCOUNTER → 2024-04-22 08:48 | Outpatient (BNVA) | payer SELFPAY | PROVIDERS: PCP Family Medicine | DX: J02.9 Acute pharyngitis, unspecified (principal) | CPT/HCPCS: 87400; 87426 ==